=== PATIENT | female | born 2000 | race Caucasian/White ===

== ENCOUNTER 2020-09-14 21:45 | Emergency (ER) | payer OTHER, SELFPAY ==
--- NOTE | 2020-09-14 23:21 | EDPHYS ---
Physician Documentation [facility] Name: Yaneth Carter Age: 20 yrs Sex: Female : 2000 Arrival Date: 09/14/2020 Time: 22:16 Bed 5 Private MD: ED Physician Marcus Vincent HPI: 09/14 22:48 This 20 yrs old Female presents to ER via Ambulatory with complaints of Sore Throat, jr8 Nausea/Vomiting. 22:48 The patient presents with sore throat. The patient describes throat pain as raw. Onset: jr8 The symptoms/episode began/occurred acutely, yesterday. Severity of symptoms: At their worst the symptoms were mild, in the emergency department the symptoms are unchanged. Modifying factors: The symptoms are alleviated by nothing, the symptoms are aggravated by swallowing. Associated signs and symptoms: Pertinent positives: fever, vomiting. The patient has experienced similar episodes in the past, a few times. The patient has not recently seen a physician. 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 - Social history:: Smoking status: Patient denies any tobacco usage or history of. ROS: 22:48 Eyes: Negative for injury, pain, redness, and discharge, Neck: Negative for injury, jr8 pain, and swelling, Cardiovascular: Negative for chest pain, palpitations, and edema, Respiratory: Negative for shortness of breath, cough, wheezing, and pleuritic chest pain, Back: Negative for injury and pain, MS/Extremity: Negative for injury and deformity, Skin: Negative for injury, rash, and discoloration, Neuro: Negative for headache, weakness, numbness, tingling, and seizure. 22:48 Constitutional: Positive for fever. 22:48 ENT: Positive for sore throat. 22:48 Abdomen/GI: Positive for nausea and vomiting, Negative for abdominal pain, diarrhea. Exam: 22:48 Constitutional: This is a well developed, well nourished patient who is awake, alert, jr8 and in no acute distress. Eyes: Pupils equal round and reactive to light, extra-ocular motions intact. Lids and lashes normal. Conjunctiva and sclera are non-icteric and not injected. Cornea within normal limits. Periorbital areas with no swelling, redness, or edema. Neck: Trachea midline, no thyromegaly or masses palpated, and no cervical lymphadenopathy. Supple, full range of motion without nuchal rigidity, or vertebral point tenderness. No Meningismus. Respiratory: Lungs have equal breath sounds bilaterally, clear to auscultation and percussion. No rales, rhonchi or wheezes noted. No increased work of breathing, no retractions or nasal flaring. Abdomen/GI: Soft, non-tender, with normal bowel sounds. No distension or tympany. No guarding or rebound. No evidence of tenderness throughout. Skin: Warm, dry with normal turgor. Normal color with no rashes, no lesions, and no evidence of cellulitis. MS/ Extremity: Pulses equal, no cyanosis. Neurovascular intact. Full, normal range of motion. Neuro: Awake and alert, GCS 15, oriented to person, place, time, and situation. Motor strength 5/5 in all extremities. Sensory grossly intact. 22:48 ENT: Exam is negative for earache, ear discharge, TM abnormalities, nasal discharge, Mouth: Lips: moist, Oral mucosa: pink and intact, moist, Gums: pink, Tongue: is moist, Posterior pharynx: Airway: patent, Tonsils: bilaterally enlarged, with erythema, with exudate, no ulcerations, Uvula: normal, midline, non-edematous, no erythema, swelling, is not appreciated, erythema, that is mild. 22:48 Cardiovascular: Rate: tachycardic, Rhythm: regular, Pulses: Pulses are 2+ in right radial artery and left radial artery. Heart sounds: normal, Edema: is not appreciated. Vital Signs: 22:23 BP 159 / 100; Pulse 102; Resp 18; Temp 99; Pulse Ox 99% ; Weight 122.47 kg; Height 5 rv ft. 5 in. (165.10 cm); 23:26 BP 139 / 77; Pulse 100; Resp 17; Pulse Ox 99% ; rv 22:23 Body Mass Index 44.93 (122.47 kg, 165.10 cm) rv MDM: 22:21 Patient medically screened. [facility] 22:48 Data reviewed: vital signs, nurses notes, lab test result(s), and as a result, I will jr8 discharge patient. Data interpreted: Pulse oximetry: on room air is 99 %. Interpretation: normal. Counseling: I had a detailed discussion with the patient and/or guardian regarding: the historical points, exam findings, and any diagnostic results supporting the discharge/admit diagnosis, the need for outpatient follow up, a family practitioner, to return to the emergency department if symptoms worsen or persist or if there are any questions or concerns that arise at home. 09/14 22:27 Order name: Strep; Complete Time: 23:23 jr8 09/14 22:27 Order name: COVID-19 : Document "Date of Symptom Onset" if Symptomatic. 8 09/14 23:23 Order name: Throat Culture EDMS Administered Medications: 23:08 Drug: Tylenol 1000 mg Route: PO; rv 23:08 Drug: Augmentin (Amoxicillin-Clavulanate) 875 mg Route: PO; rv Disposition: 09/15 04:07 Co-signature as Attending Physician, Marcus Vincent MD. 7 Disposition: 09/14/20 23:20 Discharged to Home. Impression: Acute pharyngitis. - Condition is Stable. - Discharge Instructions: Pharyngitis. - Prescriptions for Zofran 4 mg Oral Tablet - take 1 tablet by ORAL route every 12 hours As needed; 20 tablet. Amoxicillin 875 mg Oral Tablet - take 1 tablet by ORAL route every 12 hours for 10 days; 20 tablet. - Medication Reconciliation Form, Thank You Letter, Antibiotic Education, Prescription Opioid Use form. - Follow up: Private Physician; When: 1 week; Reason: Recheck today's complaints, Continuance of care, Re-evaluation by your physician. - Problem is new. - Symptoms have improved. Signatures: Dispatcher [employer] EDMS Raheem Baker PA PA jr8 Marquise Cage RN RN Marcus Chavira MD MD 7 Corrections: (The following items were deleted from the chart) 09/14 23:27 23:20 09/14/2020 23:20 Discharged to Home. Impression: Acute pharyngitis. Condition is rv Stable. Forms are Medication Reconciliation Form, Thank You Letter, Antibiotic Education, Prescription Opioid Use. Follow up: Private Physician; When: 1 week; Reason: Recheck today's complaints, Continuance of care, Re-evaluation by your physician. Problem is new. Symptoms have improved. jr8
--- NOTE | 2020-09-14 23:21 | ER ---
Nurse's Notes [facility] Name: Yaneth Carter Age: 20 yrs Sex: Female : 2000 Arrival Date: 09/14/2020 Time: 22:16 Bed 5 Private MD: Diagnosis: Acute pharyngitis Presentation: 09/14 22:23 Chief complaint: Patient states: SORE THROAT, DRY COUGH AND RUNNY NOSE FOR 2-3 DAYS rv NOW, UNDOCUMENTED FEVER, TAKING COUGH AND COLDS MEDICINE, SYMPTOMS ARE NOT IMPROVING. Coronavirus screen: Client denies travel out of the [place] in the last 14 days. Ebola Screen: No symptoms or risks identified at this time. Initial Sepsis Screen: Does the patient meet any 2 criteria? No. Patient's initial sepsis screen is negative. Does the patient have a suspected source of infection? No. Patient's initial sepsis screen is negative. Risk Assessment: Do you want to hurt yourself or someone else? Patient reports no desire to harm self or others. Onset of symptoms was September 12, 2020. 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 - Social history:: Smoking status: Patient denies any tobacco usage or history of. Screenin:26 Abuse screen: Denies threats or abuse. Denies injuries from another. Nutritional rr5 screening: No deficits noted. Tuberculosis screening: No symptoms or risk factors identified. Fall Risk None identified. Total Farris Fall Scale indicates No Risk (0-24 pts). Assessment: 22:25 General: Appears in no apparent distress. uncomfortable, Behavior is calm, cooperative, rr5 agitated, Reports fever for. Pain: Complains of pain in throat Pain radiates to neck Pain currently is 9 out of 10 on a pain scale. Quality of pain is described as aching, Pain began gradually, Is intermittent. Neuro: Level of Consciousness is awake, alert, obeys commands, Oriented to person, place, time. Cardiovascular: Capillary refill < 3 seconds Patient's skin is warm and dry. Respiratory: Airway is patent Respiratory effort is even, unlabored, Respiratory pattern is regular, symmetrical, GI: Reports nausea, vomiting. : No signs and/or symptoms were reported regarding the genitourinary system. EENT: Throat is reddened has patchy exudate has enlarged tonsils with gag reflex present. Derm: Skin is intact, is healthy with good turgor, Skin temperature is warm. Musculoskeletal: Capillary refill < 3 seconds. 22:33 Reassessment: refused for covid test. rr5 Vital Signs: 22:23 BP 159 / 100; Pulse 102; Resp 18; Temp 99; Pulse Ox 99% ; Weight 122.47 kg; Height 5 rv ft. 5 in. (165.10 cm); 23:26 BP 139 / 77; Pulse 100; Resp 17; Pulse Ox 99% ; rv 22:23 Body Mass Index 44.93 (122.47 kg, 165.10 cm) rv ED Course: 22:16 Patient arrived in ED. am4 22:19 Marquise Cage, MARKIE is Primary Nurse. rv 22:21 Raheem Baker PA is PHCP. jr8 22:21 Marcus Vincent MD is Attending Physician. jr8 22:25 Triage completed. rv 22:26 Patient has correct armband on for positive identification. Bed in low position. Call rr5 light in reach. Pulse ox on. NIBP on. 22:26 Arm band placed on right wrist. Patient placed in the treatment room, on a stretcher, rv Patient notified of wait time. 22:34 Strep swab sent to lab. rr5 23:26 No provider procedures requiring assistance completed. rv 23:26 Patient did not have IV access during this emergency room visit. rv Administered Medications: 23:08 Drug: Tylenol 1000 mg Route: PO; rv 23:08 Drug: Augmentin (Amoxicillin-Clavulanate) 875 mg Route: PO; rv Outcome: 23:20 Discharge ordered by . jr8 23:26 Discharged to home ambulatory. rv 23:26 Condition: good 23:26 Discharge instructions given to patient, Instructed on discharge instructions, follow up and referral plans. medication usage, Demonstrated understanding of instructions, follow-up care, medications, Prescriptions given X 2. 23:27 Patient left the ED. rv Signatures: Raheem Baker PA PA jr8 Marquise Cage RN RN rv Eddi Elliott RN RN rr5 Eryn Gill am4 Corrections: (The following items were deleted from the chart) 23:26 23:26 IV discontinued, intact, bleeding controlled, No redness/swelling at site. rv Pressure dressing applied, rv
[2020-09-14] MEDS ORDERED: ACETAMINOPHEN 500 MG TAB ONE (23:25)
[2020-09-14] MEDS ORDERED: AMOX/K CLAV 875 MG TAB ONE (23:25)
[2020-09-14 23:44] VITALS: TEMP 99; O2SAT 99
[2020-09-14 23:45] VITALS: BP 139/77
== END 2020-09-14 23:27 | disposition home or self-care (01) ==
LOC: ER 21:45
DX: J02.9 Acute pharyngitis, unspecified (principal)
CPT/HCPCS: 87070; 87081; 99284